=== PATIENT | female | born 1980 | race Hispanic/Latino ===

== ENCOUNTER 2018-07-20 12:47 | Emergency (ER) | payer OTHER ==
[2018-07-20] MEDS ORDERED: LIDOCAINE HCL-MPF 1% 2ML VIAL ONE (13:18)
[2018-07-20] MEDS ORDERED: CEFTRIAXONE SODIUM 1 GM ONE (13:18)
[2018-07-20 14:03] LABS: BASOPHILS % (AUTO) 0.8 % (0.0-5.0); EOSINOPHILS % (AUTO) 1.7 % (0.0-8.0); HEMATOCRIT 38.7 % (36-48); LYMPHOCYTES % (AUTO) 28.6 % (21.0-51.0); MEAN CORPUSCULAR HEMOGLOBIN 27.3 pg (27.0-33.0); MEAN CORPUSCULAR HGB CONC 32.6 g/dL (32.0-36.0); MEAN CORPUSCULAR VOLUME 83.9 fL (79-99); NEUTROPHILS % (AUTO) 63.9 % (40.0-77.0); PLATELET COUNT (AUTO) 311 K/uL (130-400); RED BLOOD CELL COUNT(AUTO) 4.61 MIL/uL (4.00-5.50); RED CELL DISTRIBUTION WIDTH 13.8 % (11.0-15.5); WHITE BLOOD COUNT (AUTO) 11.8 K/uL (4.8-10.8)
[2018-07-20 14:17] LABS: CREATININE 0.8 mg/dL (0.5-1.5); POTASSIUM 3.6 mmol/L (3.5-5.1)
[2018-07-20 14:22] LABS: ALBUMIN 3.9 g/dL (3.5-5.0); BILIRUBIN,DIRECT 0.1 mg/dL (0.0-0.3); BILIRUBIN,TOTAL 0.1 mg/dL (0.2-1.0); TOTAL PROTEIN, SERUM 8.2 g/dL (6.0-8.3)
== END 2018-07-20 14:55 | disposition home or self-care (01) ==
LOC: EDH 12:47
DX: N61.0 Mastitis without abscess (principal); Z72.0 Tobacco use
CPT/HCPCS: 36415; 76882; 80048; 80076; 81025; 85025; 96372; 99285; J0696; J3490

== ENCOUNTER 2023-12-16 23:02 | Emergency (ER) | payer BC ==
[~2023-12-16] VITALS: Ht 149.9 cm; Wt 73.9 kg
[2023-12-16] MEDS: sulfaMETHOX-TMP DS 800/160 TAB PO SCH (23:33)
[2023-12-17] MEDS: LIDOCAINE HCL-MPF 2% 5ML VIAL ONE ×3 (00:20→00:21)
[2023-12-17] MEDS: FENTanyl CITRate PF 50 MCG/1 ML 2ML VIAL IVP ONE (00:21)
[2023-12-17] MEDS ORDERED: HYDR-4060 PO (00:59)
[2023-12-17] MEDS ORDERED: SULF1TAB42 PO (00:59)
[2023-12-17 01:21] VITALS: BP 135/75; PULSE 82; RESP 18; TEMP 99; O2SAT 98
== END 2023-12-17 01:32 | disposition home or self-care (01) ==
LOC: EDH 23:02
DX: N76.0 Acute vaginitis (principal); E66.01 Morbid (severe) obesity due to excess calories; Z98.890 Other specified postprocedural states
CPT/HCPCS: 99284; 56405; 96374; J3010; J3490 ×3